=== PATIENT | female | born 1995 | race Caucasian/White ===

== ENCOUNTER 2019-01-07 12:02 | Emergency (ER) | payer OTHER ==
--- NOTE | 2019-01-07 12:47 | ER Document Report ---
ED Medical Screen (RME) - General Chief Complaint: Psych Problem Stated Complaint: PSYCH EVAL/SUICIDAL IDEATION Time Seen by Provider: 01/07/19 12:38 Mode of Arrival: Ambulatory Information source: Patient TRAVEL OUTSIDE OF THE [place] IN LAST 30 DAYS: No - HPI Patient complains to provider of: MAGDY Notes: 01/07/19 12:45 Patient here with mobile crisis. Here with complaints of some suicidal ideation last night. She used a razor to scrape the top of her hand. She is also been punching herself in the legs. States she does not feel suicidal now, she was at her psych appointment and they wanted her seen and evaluated. On exam Nontoxic, no distress. Lungs clear and equal throughout. Heart sounds normal. Superficial abrasion to the dorsum of the left hand, no laceration. Plan IVC protocol has been initiated the patient can be safely evaluated to determine her ultimate disposition after being seen and evaluated by psych. An initial examination was made on the patient as part of the triage process, and it was determined a more comprehensive evaluation was necessary. Initial labs were ordered and patient was transferred to another provider in the ED who assumed care and finished evaluation and plan. - Related Data Allergies/Adverse Reactions: Penicillins Allergy (Verified 01/07/19 12:04) shellfish derived Allergy (Verified 01/07/19 12:04) Past Medical History Renal/ Medical History: Denies: Hx Peritoneal Dialysis Psychiatric Medical History: Reports: Hx Attention Deficit Hyperactivity Disorder, Hx Depression Physical Exam - Vital signs Vitals: Temp Pulse Resp BP Pulse Ox 97.8 F 58 L 18 140/85 H 99 01/07/19 12:09 01/07/19 12:09 01/07/19 12:09 01/07/19 12:09 01/07/19 12:09 Course - Vital Signs Vital signs: Temp Pulse Resp BP Pulse Ox 97.8 F 58 L 18 140/85 H 99 01/07/19 12:09 01/07/19 12:09 01/07/19 12:09 01/07/19 12:09 01/07/19 12:09
[2019-01-07 13:16] LABS: ABSOLUTE EOSINOPHILS # (AUTO) 0.2 10^3/uL (0.0-0.6); ABSOLUTE MONOCYTES (AUTO) 0.4 10^3/uL (0.1-1.4); ABSOLUTE NEUT (AUTO) 4.2 10^3/uL (1.7-8.2); BASOPHILS % (AUTO) 0.5 % (0-2); EOSINOPHILS % (AUTO) 3.4 % (0-6); HEMATOCRIT 42.1 % (36.0-47.0); HEMOGLOBIN 14.3 g/dL (12.0-15.5); LYMPHOCYTES % (AUTO) 29.3 % (13-45); MEAN CORPUSCULAR HEMOGLOBIN 29.2 pg (27.0-33.4); MEAN CORPUSCULAR HGB CONC 33.9 g/dL (32.0-36.0); MEAN CORPUSCULAR VOLUME 86 fl (80-97); MONOCYTES % (AUTO) 5.8 % (3-13); PLATELET COUNT 228 10^3/uL (150-450); RED BLOOD COUNT 4.89 10^6/uL (3.72-5.28); RED CELL DISTRIBUTION WIDTH 12.7 % (11.5-14.0); TOTAL CELLS COUNTED % (AUTO) 100 %; WHITE BLOOD COUNT 6.9 10^3/uL (4.0-10.5)
[2019-01-07 13:20] LABS: APPEARANCE,URINE CLEAR; BILIRUBIN,URINE NEGATIVE (NEGATIVE); COLOR,URINE STRAW; GLUCOSE, URINE NEGATIVE (NEGATIVE); KETONES,URINE NEGATIVE (NEGATIVE); LEUKOCYTE ESTERASE,URINE NEGATIVE (NEGATIVE); NITRITE,URINE NEGATIVE (NEGATIVE); PROTEIN,URINE NEGATIVE (NEGATIVE); URINE SPECIFIC GRAVITY 1.005; UROBILINOGEN,URINE NEGATIVE mg/dL (<2.0)
[2019-01-07 13:45] LABS: ALANINE AMINOTRANSFERASE 34 U/L (9-52); ALBUMIN 4.2 g/dL (3.5-5.0); ALKALINE PHOSPHATASE 85 U/L (38-126); ANION GAP 9 (5-19); ASPARTATE AMINO TRANSFERASE 27 U/L (14-36); BILIRUBIN,DIRECT 0.2 mg/dL (0.0-0.4); BILIRUBIN,TOTAL 0.5 mg/dL (0.2-1.3); BLOOD UREA NITROGEN 13 mg/dL (7-20); CALCIUM 9.9 mg/dL (8.4-10.2); CARBON DIOXIDE 30 mmol/L (22-30); CHLORIDE 102 mmol/L (98-107); GLUCOSE 86 mg/dL (75-110); POTASSIUM 4.4 mmol/L (3.6-5.0); SODIUM 141.3 mmol/L (137-145); TOTAL PROTEIN 7.5 g/dL (6.3-8.2)
[2019-01-07 13:46] LABS: ACETAMINOPHEN < 10 ug/mL (10-30); ALCOHOL < 10 mg/dL (NONE DETECTED); SALICYLATE < 1.0 mg/dL (2.0-20.0)
[2019-01-07 13:47] LABS: URINE AMPHETAMINES SCREEN NEGATIVE; URINE BARBITURATES SCREEN NEGATIVE; URINE BENZODIAZEPINES SCREEN NEGATIVE; URINE COCAINE SCREEN NEGATIVE; URINE MARIJUANA (THC) SCREEN NEGATIVE; URINE METHADONE SCREEN NEGATIVE; URINE PHENCYCLIDINE SCREEN NEGATIVE
--- NOTE | 2019-01-07 15:37 | ER Document Report ---
ED General <DUKE PETERS - Last Filed: 01/07/19 16:01> - General Mode of Arrival: Ambulatory TRAVEL OUTSIDE OF THE [place] IN LAST 30 DAYS: No <ELENI QUIJANO - Last Filed: 01/07/19 16:33> - General Chief Complaint: Psych Problem Stated Complaint: PSYCH EVAL/SUICIDAL IDEATION Time Seen by Provider: 01/07/19 12:38 Primary Care Provider: [facility] [Outside] - Follow up as needed CAMERON VERDUZCO PA [Primary Care Provider] - Follow up as needed - [facility] Notes: Patient is a 23 year old female that presents to the emergency department for chief complaint of self harming behavior. Patient reports feeling very depressed last night and wanting to hurt herself. She states she punched herself in the thighs and cut her left hand with a razor blade. She is not sure if she wanted to kill herself or not. Currently she denies any suicidal ideation or desire to hurt her self. Patient does report history of self-harm years ago. She was at her psychiatrist's office today who referred her here for further evaluation. She is currently on medications for depression and anxiety and denies any changes in her medicines recently. Patient denies any new trigger which made her feel worse. Past Medical History: Depression, anxiety, ADHD, PTSD, PCOS Past Surgical History: Negative Social History: Denies drugs alcohol and tobacco Family History: Reviewed and noncontributory for presenting illness Allergies: Reviewed, see documented allergy list. REVIEW OF SYSTEMS: CONSTITUTIONAL : No fever No chills No diaphoresis No recent illness EENT: No vision changes No congestion No sore throat CARDIOVASCULAR: No chest pain No palpitations RESPIRATORY: No shortness of breath No cough No difficulty breathing GASTROINTESTINAL: No abdominal pain No nausea No vomiting No diarrhea GENITOURINARY: No dysuria No hematuria No difficulty urinating MUSCULOSKELETAL: No back pain No leg pain No arm pain SKIN: No rashes No lesions LYMPHATIC: No swollen, enlarged glands. NEUROLOGICAL: No lightheadedness No headache No weakness No paresthesias PSYCHIATRIC: anxiety depression suicidal ideation PHYSICAL EXAMINATION: Vital signs reviewed, nursing noted reviewed. GENERAL: Well-appearing, well-nourished and in no acute distress. HEAD: Atraumatic, normocephalic. EYES: Eyes appear normal, extraocular movements intact, sclera anicteric, conjunctiva are normal. ENT: nares patent, oropharynx clear without exudates. Moist mucous membranes. NECK: Normal range of motion, supple without lymphadenopathy LUNGS: Breath sounds clear to auscultation bilaterally and equal. No wheezes rales or rhonchi. HEART: Regular rate and rhythm without murmurs ABDOMEN: Soft, nontender, normoactive bowel sounds. No rebound, guarding, or rigidity. No masses appreciated. EXTREMITIES: Nontender, good range of motion, no pitting or edema. NEUROLOGICAL: No focal neurological deficits. Moves all extremities spontaneously Motor and sensory grossly intact on exam. PSYCH: Normal mood, normal affect. Interactive SKIN: Warm, Dry, normal turgor, 0.25 very superficial linear abrasion to left first MCP joint with no active bleeding. (ELENI QUIJANO) - Related Data Allergies/Adverse Reactions: Penicillins Allergy (Verified 01/07/19 12:04) shellfish derived Allergy (Verified 01/07/19 12:04) Past Medical History - General Information source: Patient - Social History Smoking Status: Never Smoker Family History: Reviewed & Not Pertinent Patient has suicidal ideation: Yes Patient has homicidal ideation: No Renal/ Medical History: Denies: Hx Peritoneal Dialysis Psychiatric Medical History: Reports: Hx Attention Deficit Hyperactivity Disorder, Hx Depression <ELENI QUIJANO - Last Filed: 01/07/19 16:33> - Vital signs Vitals: Temp Pulse Resp BP Pulse Ox 97.8 F 58 L 18 140/85 H 99 01/07/19 12:09 01/07/19 12:09 01/07/19 12:09 01/07/19 12:09 01/07/19 12:09 Course - Laboratory Result Diagrams: 01/07/19 13:00 01/07/19 13:00 <DUKE PETERS - Last Filed: 01/07/19 16:01> - Laboratory Result Diagrams: 01/07/19 13:00 01/07/19 13:00 <ELENI QUIJANO - Last Filed: 01/07/19 16:33> - Re-evaluation Re-evalutation: 01/07/19 15:36 Vitals reviewed. Nursing notes reviewed. Patient is calm and interactive with me. She is answering questions and has good eye contact. She currently denies any suicidal ideation. The abrasion on her hand where she cut herself is tiny and not bleeding. She does not appear to be a threat to herself currently and would like to be discharged home. She does have outpatient follow-up as well as family. She is currently waiting final evaluation by psych to determine final disposition. She is medically cleared and her lab work is unremarkable. 01/07/19 16:33 Patient's is at bedside. She was completely evaluated by our psych rah mNoe Myself and the psych team feel comfortable with her being discharged home as does her . Patient was given out patient resources. She was given return precautions. She is stable and not actively suicidal at time of discharge. Laboratory 01/07/19 01/07/19 01/07/19 12:57 12:57 13:00 WBC 6.9 RBC 4.89 Hgb 14.3 Hct 42.1 MCV 86 MCH 29.2 MCHC 33.9 RDW 12.7 Plt Count 228 Seg Neutrophils % 61.0 Lymphocytes % 29.3 Monocytes % 5.8 Eosinophils % 3.4 Basophils % 0.5 Absolute Neutrophils 4.2 Absolute Lymphocytes 2.0 Absolute Monocytes 0.4 Absolute Eosinophils 0.2 Absolute Basophils 0.0 Sodium Potassium Chloride Carbon Dioxide Anion Gap BUN Creatinine Est GFR ( Amer) Est GFR (Non-Af Amer) Glucose Calcium Total Bilirubin Direct Bilirubin Neonat Total Bilirubin Neonat Direct Bilirubin Neonat Indirect Bili AST ALT Alkaline Phosphatase Total Protein Albumin Serum HCG, Qual Urine Color STRAW Urine Appearance CLEAR Urine pH 6.0 Ur Specific [place] 1.005 Urine Protein NEGATIVE Urine Glucose (UA) NEGATIVE Urine Ketones NEGATIVE Urine Blood NEGATIVE Urine Nitrite NEGATIVE Urine Bilirubin NEGATIVE Urine Urobilinogen NEGATIVE Ur Leukocyte Esterase NEGATIVE Urine WBC (Auto) 1 Urine RBC (Auto) 1 Squamous Epi Cells Auto 1 Urine Mucus (Auto) RARE Urine Ascorbic Acid NEGATIVE Salicylates Urine Opiates Screen NEGATIVE Urine Methadone Screen NEGATIVE Acetaminophen Ur Barbiturates Screen NEGATIVE Ur Phencyclidine Scrn NEGATIVE Ur Amphetamines Screen NEGATIVE U Benzodiazepines Scrn NEGATIVE Urine Cocaine Screen NEGATIVE U Marijuana (THC) Screen NEGATIVE Serum Alcohol 01/07/19 01/07/19 13:00 13:00 WBC RBC Hgb Hct MCV MCH MCHC RDW Plt Count Seg Neutrophils % Lymphocytes % Monocytes % Eosinophils % Basophils % Absolute Neutrophils Absolute Lymphocytes Absolute Monocytes Absolute Eosinophils Absolute Basophils Sodium 141.3 Potassium 4.4 Chloride 102 Carbon Dioxide 30 Anion Gap 9 BUN 13 Creatinine 0.65 Est GFR ( Amer) > 60 Est GFR (Non-Af Amer) > 60 Glucose 86 Calcium 9.9 Total Bilirubin 0.5 Direct Bilirubin 0.2 Neonat Total Bilirubin Not Reportable Neonat Direct Bilirubin Not Reportable Neonat Indirect Bili Not Reportable AST 27 ALT 34 Alkaline Phosphatase 85 Total Protein 7.5 Albumin 4.2 Serum HCG, Qual NEGATIVE Urine Color Urine Appearance Urine pH Ur Specific [place] Urine Protein Urine Glucose (UA) Urine Ketones Urine Blood Urine Nitrite Urine Bilirubin Urine Urobilinogen Ur Leukocyte Esterase Urine WBC (Auto) Urine RBC (Auto) Squamous Epi Cells Auto Urine Mucus (Auto) Urine Ascorbic Acid Salicylates < 1.0 L Urine Opiates Screen Urine Methadone Screen Acetaminophen < 10 L Ur Barbiturates Screen Ur Phencyclidine Scrn Ur Amphetamines Screen U Benzodiazepines Scrn Urine Cocaine Screen U Marijuana (THC) Screen Serum Alcohol < 10 (ELENI QUIJANO) - Vital Signs Vital signs: Temp Pulse Resp BP Pulse Ox 97.8 F 58 L 18 140/85 H 99 01/07/19 12:09 01/07/19 12:09 01/07/19 12:09 01/07/19 12:09 01/07/19 12:09 - Laboratory Laboratory results interpreted by me: 01/07/19 13:00 Salicylates < 1.0 L Acetaminophen < 10 L - EKG Interpretation by Me Additional EKG results interpreted by me: 01/07/19 15:37 Interpreted by myself 1322: Normal sinus rhythm, rate 55, normal axis, no ectopy, no STEMI (ELENI QUIJANO) Discharge <DUKE PETERS - Last Filed: 01/07/19 16:01> <ELENI QUIJANO - Last Filed: 01/07/19 16:33> - Discharge Clinical Impression: Self-harming behavior Condition: Stable Disposition: HOME, SELF-CARE Additional Instructions: You have been evaluated by both medical and behavioral health teams and have been deemed appropriate for discharge. You are recommended to continue with your outpatient therapeutic and medication management services. You have been provided a resource list of providers including mobile crisis contact information. DEPRESSION: Your evaluation reveals that you have mental depression. While symptoms may be vague, they often include disturbance of sleep, fatigue, loss of appetite, and general loss of interest in life. While depression may be a side effect of drugs, or a reaction to a major change in your life, many cases have no known cause. If depression is acute, and related to a major loss in your life, you can expect it to clear completely with time. If you have been depressed a long time, are prone to repeated bouts of depression or low mood, or have been thinking of suicide, get help. Depression can be treated with anti-depressant medication and counselling. Long-term depression will often take a few weeks to clear, even with appropriate medication. Follow-up care is important. SUICIDAL IDEATION: Suicidal ideation is a common medical term for thoughts about suicide, which may be as detailed as a formulated plan, without the suicidal act itself. Although most people who undergo suicidal ideation do not commit suicide, some go on to make suicide attempts. The range of suicidal ideation varies greatly from fleeting to detailed planning, role playing, and unsuccessful attempts. While thoughts about suicide are common, most people do not carry out serious actions to commit suicide. Based upon your evaluation and discussion with you, we do not believe you are currently at risk to act upon your thoughts of suicide. You have agreed to return to the Emergency Department, at any time, if you feel inclined to act upon your suicidal thoughts. FOLLOW-UP CARE: If you have been referred to a physician for follow-up care, call the physicians office for an appointment as you were instructed or within the next two days. If you experience worsening or a significant change in your symptoms, notify the physician immediately or return to the Emergency Department at any time for re-evaluation. Referrals: CAMERON VERDUZCO PA [Primary Care Provider] - Follow up as needed [facility] [Outside] - Follow up as needed
[2019-01-07 16:42] VITALS: BP 106/63
--- NOTE | 2019-01-07 23:41 | EKG REPORT ---
SEVERITY:- NORMAL ECG - SINUS RHYTHM : Confirmed by: Devante Feng 07-Jan-2019 23:41:07
== END 2019-01-07 16:46 | disposition home or self-care (01) ==
LOC: ER 12:02
DX: S61.412A Laceration without foreign body of left hand, initial encounter (principal); X78.9XXA Intentional self-harm by unspecified sharp object, initial encounter
CPT/HCPCS: 36415; 80053; 80307; 81001; 84703; 85025; 93005; 93010; 99285